=== PATIENT | female | born 1980 | race Caucasian/White ===

== ENCOUNTER 2018-06-18 17:03 | Emergency (ER) | payer OTHER ==
[~2018-06-18] VITALS: Ht 170.2 cm; Wt 61.1 kg
--- NOTE | 2018-06-18 17:20 | NUR ---
Dr. Alatorre at bedside to evaluate pt.
[2018-06-18 17:49] LABS: BASOPHILS # (AUTO) 0.03 x10^3/uL (0-0.1); BASOPHILS % (AUTO) 0 % (0-1); EOSINOPHILS # (AUTO) 0.25 x10^3/uL (0-0.4); EOSINOPHILS % (AUTO) 2 % (1-7); LYMPHOCYTES # (AUTO) 2.96 x10^3/uL (1-3.4); LYMPHOCYTES % (AUTO) 29 % (22-44); MD NO; MEAN CORPUSCULAR HEMOGLOBIN 30.7 pg (27.0-34.8); MEAN CORPUSCULAR VOLUME 90.4 fL (80-100); MEAN PLATELET VOLUME 8.4 fL (7.4-10.4); MONOCYTES % (AUTO) 5 % (2-9); NEUTROPHILS # (AUTO) 6.58 x10^3/uL (1.8-6.8); NEUTROPHILS % (AUTO) 64 % (42-75); PLATELET COUNT 266 x10^3/uL (130-400); RED BLOOD COUNT 4.64 x10^6/uL (3.82-5.3); RED CELL DISTRIBUTION WIDTH 13.3 % (9.6-15.2)
[2018-06-18] MEDS ORDERED: ONDANSETRON ODT 4 MG ONE (17:51)
[2018-06-18] MEDS ORDERED: OXYcodone/APAP 5/325MG TABLET ONE (17:52)
--- NOTE | 2018-06-18 17:58 | NUR ---
Pt medicated, per AUG. Pt to bathroom, in wheelchair, with . Hat in place to catch any products of conception.
[2018-06-18] MEDS ORDERED: ONDANSETRON ODT 4 MG PO ONE (18:00)
[2018-06-18] MEDS ORDERED: OXYcodone/APAP 5/325MG TABLET PO ONE (18:00)
--- NOTE | 2018-06-18 18:16 | NUR ---
Pt to imaging, with tech, on patsy.
[2018-06-18 19:16] VITALS: BP 107/68
== END 2018-06-18 19:49 | disposition home or self-care (01) ==
LOC: ED 19:33
DX: O03.4 Incomplete spontaneous abortion without complication (principal)
CPT/HCPCS: 36415; 76801; 84702; 85025; 86850; 86900; 96372; 99284; J2790